=== PATIENT | female | born 1955 | race Caucasian/White ===

== ENCOUNTER 2024-10-23 09:31 | Inpatient (IN) | payer MEDICARE, MEDICAID, SELFPAY ==
[2024-10-23] VITALS (11 sets, daily range): BP systolic 149–192; BP diastolic 55–71; PULSE 71–83; RESP 16–20; TEMP 36.6–37.2; O2SAT 95–98; BMI 29.3; BMI 28.9
--- NOTE | ~2024-10-23 | NM_ITS ---
Lexiscan Myocardial perfusion study Indication: Chest pain Technique: The patient was brought in for a Lexiscan perfusion study on 10/25/2024 and was injected 0.4 mg of Lexiscan intravenously. Within a minute of this injection 25 mCi of sestamibi was given intravenously. Images were obtained using the SPECT gamma camera interlaced with the gating device. Images were obtained in supine position. Resting perfusion study was performed on 10/24/2024. Patient was administered 25 mCi of sestamibi intravenously at rest. Images were then obtained in supine position. Images obtained without without CT attenuation. Total DLP 177 mGy-cm. Images were processed with the software and compared side to side in short axis, horizontal long axis and vertical long axis views. Findings: The stress perfusion study showed nonattenuation images show normal uptake ordered images in all segments of the LV myocardium. There is suggestion of left ventricular hypertrophy. Attenuated corrected images show minimally reduced uptake in the distal septum of the LV myocardium The gated study shows normal LV systolic function with calculated LVEF of 62%. LV cavity is normal in size. The gated study shows normal systolic wall thickening and contraction of segments. Resting study shows nonattenuated images show minimal thinning of the distal lateral wall of the LV myocardium.. Gating at rest reveals normal systolic wall motion with ejection fraction at 56%. The findings are consistent with normal myocardial perfusion. NM/NM delaney perf SPECT rest & str Impression: 1. Myocardial perfusion imaging study shows normal myocardial perfusion 2. Gated LVEF is 62% 3. Transient ischemic dilatation not present Nondiagnostic changes on EKG. Electronically signed by: Eliu Alvarez MD 10/25/2024 02:56 PM EDT
--- NOTE | ~2024-10-23 | XR_ITS ---
EXAMINATION: XR CHEST 1 VIEW HISTORY: CP COMPARISON: There are no prior studies for comparison. FINDINGS: A single AP portable view of the chest performed at 9:59 AM is submitted. The lungs are expanded and clear. There is no pleural effusion, pneumothorax, or pulmonary vascular congestion. The heart is enlarged. The aorta is calcified. The bones are intact. XR/XR chest 1V IMPRESSION: Cardiomegaly. The lungs are clear. Electronically signed by: Narinder Altamirano MD 10/23/2024 10:18 AM EDT
--- NOTE | 2024-10-23 09:41 | ECG_ITS ---
Test Reason : CHEST PAIN Blood Pressure : */* mmHG Vent. Rate : 78 BPM Atrial Rate : 78 BPM P-R Int : 158 ms QRS Dur : 84 ms QT Int : 424 ms P-R-T Axes : 48 33 78 degrees QTcB Int : 483 ms Normal sinus rhythm Cannot rule out Anterior infarct , age undetermined Subtle ST elevations inferior and lateral leads ?pericarditis Abnormal ECG No previous ECGs available Referred By: Generic ED Physician Electronically Signed By: Dung Waters
--- NOTE | 2024-10-23 09:56 | ED_ITS ---
HPI - Chest Pain General Chief Complaint: Chest Pain Stated Complaint: CHEST PRESSURE Time Seen by Provider: 10/23/24 09:55 Source: patient and RN notes reviewed Mode of arrival: ambulatory Limitations: no limitations History of Present Illness ED Provider: Laura Matias PA-C HPI narrative: This is a 69-year-old female, with a history of end-stage renal disease on dialysis [place] [facility] patient (previously M/W/F > recently changed to Wednesday and Fridays several weeks ago - followed by Dr. Mcelroy), hypertension, recent [facility] admission for pericarditis, pericardial effusion, hyperlipidemia, CHF, subarachnoid hemorrhage, hyper parathyroidism here with concerns for acute episode of midsternal chest pain and hypertension during dialysis treatment today. Patient reports that at 8:50 a.m. she was almost done with her dialysis when she developed midsternal chest pressure, describing as if ?someone was sitting on my chest?. At that time she developed nausea, shortness of breath, palpitations. She states that she received nitroglycerin x3 which alleviated her symptoms. She reports that she has some soreness to her chest otherwise she was feeling better. She also was given 4 baby aspirin EN route. She denies any current shortness of breath, abdominal nausea, vomiting or diarrhea. She does report that she had the flu several weeks ago. She does report that she recovered from this, and states that she has been in her usual state of health as of recent. MD complaint: chest pain and chest heaviness Pertinent past history: coronary artery disease Onset (ago): hour(s) Timing of current episode: episodic Prior episodes: No Onset: other (During dialysis) Pain location: substernal Severity: severe Quality: heaviness Relieving factors: nitroglycerin Associated symptoms: nausea and dyspnea Treatment prior to arrival: aspirin and nitroglycerin Risk Factors Coronary artery disease risk factors: hyperlipidemia and hypertension Thoracic aortic dissection risk factors: none Related Data Allergies Allergy/AdvReac Type Severity Reaction Status Date / Time No Known Allergies Allergy Verified 10/23/24 09:48 Review of Systems 2 Review of Systems: Yes all other systems are reviewed and are negative Constitutional: Constitutional: Reports as per HPI [facility] Social History Social History Smoked in Last 30 Days: No Use of substances other than those prescribed or required for medical reasons: No Advance Directives: No Advance Directives Information Provided: Yes Physical Exam 2 Vital Signs: Vital Signs: Last Vital Signs Temp 97.9 F 10/23/24 10:21 Pulse 71 10/23/24 13:12 Resp 16 10/23/24 13:12 BP 175/71 H 10/23/24 13:12 Pulse Ox 98 10/23/24 13:12 O2 Del Method Room Air 10/23/24 13:12 BMI result Body Mass Index 29.3 Const: General: cooperative, comfortable and no acute distress O rientation/consciousness: patient oriented x3 Limitations: no limitations HEENT: Head: Yes normal to inspection, Yes normocephalic and Yes atraumatic Ears: hearing grossly normal bilaterally General nose exam: Normal external nose present Face and sinus: Yes normal facial exam Mouth: Normal oral and palatal mucosa present, oropharynx normal and moist mucous membranes Throat: Yes posterior oropharynx normal Eyes: General: appearance normal, both eyes and all related structures E yelids: Yes eyelids normal Conjunctivae: conjunctivae normal Sclerae: s clerae normal Pupils: Equal, round and reactive pupils present EOM: EOMs intact bilaterally Neck: Neck: Yes normal visual inspection, Yes full ROM and Yes no lymphadenopathy Lymphatic: no lymphadenopathy noted Chest: Chest palpation & inspection: normal inspection of the chest Resp: Effort & Inspection: normal respiratory effort and able to speak in complete sentences Auscultation: clear to auscultation bilaterally, no crackles, no rales, no rhonchi and no wheezes Cardio: Rate: regular rate Rhythm: regular rhythm Heart sounds: S1 normal heart sound present and S2 normal heart sound present GI: Other: Abdomen is soft, nontender Inspection: Yes normal to inspection Skin: General skin exam: no rashes or lesions noted Trauma: no lacerations or abrasions Wounds: no wounds Neuro: General: patient oriented x3 and moves all extremities Cranial nerves: Yes Equal, round and reactive pupils present Extrem: Other: 1+ pitting edema noted bilaterally, no c alan tenderness. General: Yes normal to inspection Right upper extremity: normal to inspection Left upper extremity: normal to inspection Right lower extremity: normal to inspection Left lower extremity: normal to inspection Course Reevaluation(s) Reevaluation #1: Labs returned, patient with leukocytosis at 13.1, H&H 11.4/34.1, chemistry with hypokalemic at 3.1, creatinine 2.1, BUN of 29, glucose 238, 1st troponin as 47.2, BNP 433. Patient has a heart score of 7. Reached out to cardiac care nurse, Dr. Waters pending overall workup. Time: 11:16 Reevaluation #2: Per recommendation from cardiac care nurse, Dr. Waters, recommending dose of nitroglycerin to see if soreness in chest resolves. Time: 11:44 Reevaluation #3: Been feeling much better after receiving dose of nitroglycerin, states that her chest pain has resolved. Repeat EKG does not show any significant acute changes. Will discuss with Dr. Waters Time: 12:45 Additional Reevaluation(s): 1326 - reviewed repeat EKG with Dr. Waters - appears that this is a pericarditis like change. Will add on ESR and CRP. Repeat troponin 50.4. Patient will be admitted for further management and observation. Dr. Waters recommends admission. Will discussed with hospitalist for transfer of care their service. Patient remains to be chest pain free. Medications Administered Discontinued Medications Generic Name Dose Route Start Last Admin Trade Name Freq PRN Reason Stop Dose Admin Nitroglycerin 0.4 mg 10/23/24 11:44 10/23/24 12:19 Nitroglycerin 0.4 Mg Tab.Subl SUBLINGUAL 10/23/24 11:45 0.4 mg ONCE ONE Administration Medical Decision Making Medical Decision Making [facility] Narrative: This is a 69-year-old female, with a history of end-stage renal disease on dialysis [facility] center patient (previously M/W/F > recently changed to Wednesday and Fridays several weeks ago), hypertension, pericarditis, pericardial effusion, hyperlipidemia, CHF, subarachnoid hemorrhage, hyper parathyroidism here with concerns for acute episode of midsternal chest pain and hypertension during dialysis treatment today. On arrival, blood pressure 149/59, all other vital signs within normal limits. She is well-appearing under no acute distress. Patient reports that her chest pain has since resolved after receiving nitro and aspirin. EKG was performed revealing normal sinus rhythm at a ventricular rate of 78 beats per minute, no ST elevation or depression SC interval 158, QT QTC 424/483. Differential diagnoses include NSTEMI, STEMI, ACS, unstable angina, pneumonia. Patient typically goes to [facility] for her treatment, she does present today with medical records printed out from the [facility]. Differential Diagnosis Differential Diagnoses: The differential diagnosis associated with the presentation includes See above Admission/Observation Consideration of admission/observation: Escalation of care including admission/observation considered Lab Data MDM Lab Attestation statement: I reviewed the patient's lab results. 10/23/24 10:11 10/23/24 10:11 Labs: Lab Results 10/23/24 10/23/24 10/23/24 Range/Units 10:11 10:45 12:33 WBC 13.1 H (4.8-10.8) X10*3/uL RBC 3.47 L (4.20-5.50) X10*6/uL Hgb 11.4 L (12.0-16.0) g/dl Hct 34.1 L (37.0-47.0) % MCV 98.3 H (80.0-98.0) fL MCH 32.9 (27.0-33.0) pg MCHC 33.4 (31.0-35.0) g/dl RDW 15.6 (11.0-16.0) % Plt Count 163 (160-400) X10*3/uL MPV 10.0 (9.4-12.3) fL Immature Gran % (Auto) 4.3 H (0.0-0.4) % Neut % (Auto) 83.0 H (45-73) % Lymph % (Auto) 8.2 L (20-40) % Traverse % (Auto) 3.9 (2-11) % Eos % (Auto) 0.4 (0-4) % Baso % (Auto) 0.2 (0-2) % Lymph # (Auto) 1.1 L (1.2-4.9) X10*3/uL [place]verse # (Auto) 0.5 (0.1-1.2) X10*3/uL Eos # (Auto) 0.1 (0.0-0.4) X10*3/uL Baso # (Auto) 0.0 (0.0-0.2) X10*3/uL Abs Immat Gran (auto) 0.56 H (0.00-0.03) X10*3/uL Absolute Neuts (auto) 10.9 H (2.0-8.3) x10*3/uL Absolute Nucleated RBC 0.000 (0.0-0.012) X10*3/uL Nucleated RBC % (auto) 0.0 (0.0-0.2) /100WBC PT 10.2 L (10.9-12.4) SEC INR 0.9 (0.9-1.1) APTT 24.7 L (26.0-36.8) SEC Sodium 140 (135-145) mmol/L Potassium 3.1 L (3.3-5.1) mmol/L Chloride 101 (96-108) mmol/L Carbon Dioxide 28 (22-29) mmol/L Anion Gap 14 (12-20) BUN 29 H (9-16) mg/dL Creatinine 2.13 H (0.5-1.4) mg/dL Estim Creat Clear Calc 22.9 Estimated GFR 23 Random Glucose 238 H (60-115) mg/dL Calcium 8.3 L (8.4-10.2) mg/dL Magnesium 1.6 (1.6-2.6) mg/dL Total Bilirubin 0.3 (0.0-1.0) mg/dL Direct Bilirubin 0.1 (0.0-0.5) mg/dL AST 26 (5-31) U/L ALT 39 H (0-31) U/L Alkaline Phosphatase 37 L (39-117) U/L Troponin I High Sens 47.2 H 50.4 H* (<3.5-17.0) ng/L C-Reactive Protein < 0.10 (< or = 0.50) mg/dL B-Natriuretic Peptide 433 H (<100) pg/mL Total Protein 6.2 L (6.5-8.0) g/dL Albumin 3.4 L (3.5-5.0) g/dL Influenza Type A (PCR) NEGATIVE (Negative) Influenza Type B (PCR) NEGATIVE (Negative) RSV RNA Qual (PCR) NEGATIVE (Negative) SARS-CoV-2 RNA (RT-PCR) NEGATIVE (Negative) Radiology Impression Discussion of test interpretation with radiology: I have reviewed the radiologist's reading. Radiologist Impression: EXAMINATION: XR CHEST 1 VIEW HISTORY: CP COMPARISON: There are no prior studies for comparison. FINDINGS: A single AP portable view of the chest performed at 9:59 AM is submitted. The lungs are expanded and clear. There is no pleural effusion, pneumothorax, or pulmonary vascular congestion. The heart is enlarged. The aorta is calcified. The bones are intact. XR/XR chest 1V IMPRESSION: Cardiomegaly. The lungs are clear. Electronically signed by: Narinder Altamirano MD 10/23/2024 10:18 AM EDT RP Dictated By: Narinder Altamirano MD Signed By: <Electronically signed by Narinder Altamirano MD in OV> Scores Heart Score History: -2- highly suspicious ECG: -0- normal Age: -2- > or = 65 Risk factory: -2- 3 or more risk factors or treated atherosclerosis Troponin: -1- >1 - <3x normal limit Score: 7 Risk: 50.1% Discharge Plan Discharge Clinical Impression: Chest pain, Pericarditis Patient Disposition: Still a Patient Print Language: Yoruba
[2024-10-23 10:19] LABS: MANUAL DIFF FLAG NO
[2024-10-23 10:21] LABS: Basophils Percent Auto 0.2 % (0-2); Eosinophils Absolute Auto 0.1 X10*3/uL (0.0-0.4); Eosinophils Percent Auto 0.4 % (0-4); Hematocrit 34.1 % (37.0-47.0); Hemoglobin 11.4 g/dl (12.0-16.0); Imm Gran Abs Auto 0.56 X10*3/uL (0.00-0.03); Imm Gran Pct Auto 4.3 % (0.0-0.4); Lymphocytes Absolute Auto 1.1 X10*3/uL (1.2-4.9); Lymphocytes Percent Auto 8.2 % (20-40); Mean Corpuscular HGB Conc 33.4 g/dl (31.0-35.0); Mean Corpuscular Hemoglobin 32.9 pg (27.0-33.0); Mean Corpuscular Volume 98.3 fL (80.0-98.0); Monocytes Absolute Auto 0.5 X10*3/uL (0.1-1.2); Monocytes Percent Auto 3.9 % (2-11); Neutrophils Absolute Auto 10.9 x10*3/uL (2.0-8.3); Platelet Count 163 X10*3/uL (160-400); Red Blood Count 3.47 X10*6/uL (4.20-5.50); Red Cell Distribution Width 15.6 % (11.0-16.0); White Blood Count 13.1 X10*3/uL (4.8-10.8)
[2024-10-23 10:30] LABS: INTERNATIONAL NORM RATIO 0.9 (0.9-1.1); Prothrombin Time 10.2 SEC (10.9-12.4)
[2024-10-23 10:33] LABS: Partial Thromboplastin Time 24.7 SEC (26.0-36.8)
[2024-10-23 10:52] LABS: Alanine Aminotransferase 39 U/L (0-31); Albumin Level 3.4 g/dL (3.5-5.0); Alkaline Phosphatase 37 U/L (39-117); Anion Gap 14 (12-20); Aspartate Amino Transferase 26 U/L (5-31); Bilirubin Direct 0.1 mg/dL (0.0-0.5); Bilirubin Total 0.3 mg/dL (0.0-1.0); Blood Urea Nitrogen 29 mg/dL (9-16); Calcium 8.3 mg/dL (8.4-10.2); Carbon Dioxide 28 mmol/L (22-29); Chloride 101 mmol/L (96-108); Creatinine Clr Calc Pharmacy 22.9; Estimated Glomerular Filt Rate 23; Glucose Random 238 mg/dL (60-115); Magnesium 1.6 mg/dL (1.6-2.6); Potassium 3.1 mmol/L (3.3-5.1); Sodium 140 mmol/L (135-145); Total Protein 6.2 g/dL (6.5-8.0)
[2024-10-23 10:54] LABS: Troponin-I High Sensitivity 47.2 ng/L (<3.5-17.0)
[2024-10-23 10:58] LABS: Influenza A PCR NEGATIVE (Negative); Influenza B PCR NEGATIVE (Negative); Resp Syncy Virus RNA Qual PCR NEGATIVE (Negative); SARS COV2 PCR INHOUSE NEGATIVE (Negative)
[2024-10-23 11:12] LABS: B Type Natriuretic Peptide 433 pg/mL (<100)
--- NOTE | 2024-10-23 11:41 | ECG_ITS ---
Test Reason : CHEST PAIN Blood Pressure : */* mmHG Vent. Rate : 77 BPM Atrial Rate : 77 BPM P-R Int : 170 ms QRS Dur : 82 ms QT Int : 442 ms P-R-T Axes : 54 40 86 degrees QTcB Int : 500 ms Normal sinus rhythm Cannot rule out Anterior infarct (cited on or before 23-Oct-2024) ST elevations-consider pericarditis/ Abnormal ECG When compared with ECG of 23-Oct-2024 09:47, No significant change was found Referred By: Laura Matias Electronically Signed By: Dung Waters
[2024-10-23] MEDS: Nitroglycerin 0.4 MG TAB.SUBL SUBLINGUAL (12:19)
[2024-10-23 13:20] LABS: Troponin-I High Sensitivity 50.4 ng/L (<3.5-17.0)
[2024-10-23 13:27] LABS: C Reactive Protein < 0.10 mg/dL (< or = 0.50)
--- NOTE | 2024-10-23 13:59 | PC.NURSE ---
Pt presents to ED via EMS from [facility] for hypertension and an episode of midline CP 05/18 that resolved after nitro X3 by facility. Pt gets dialysis Wed/Wed/Wed, has been compliant, fistula on left side. Pt is alert and oriented with mild confusion, breathing even and unlabored, skin warm and dry. IV 18G in right AC by EMS. Pt denying any complaints, does have episode of mild CP here again resolved by nitro
--- NOTE | 2024-10-23 14:00 | PC.NURSE ---
Purewick placed for urine incontinence, pt cleaned.
[2024-10-23 14:09] LABS: Erythrocyte Sedimentation Rate 17 MM/HR (0-20)
--- NOTE | 2024-10-23 14:37 | PM.CNCAR ---
History of Present Illness History of Present Illness Date of Service: 10/23/24 Requesting physician: Laura Matias Chief complaint: CHEST PRESSURE Narrative: [age] year female who is presenting for chest pain. She has reported history as per the daughter and herself of pericarditis which she has been treated for a few times at [facility] recently. She said she was given initially aspirin and had recurrent episode and again was given aspirin. Subsequently she was given prednisone because of recurrent pericarditis. Colchicine was not given because she is on hemodialysis. Today while on dialysis she had sudden onset chest pressure. She said it felt as if someone is sitting on my chest. Her blood pressure was significantly elevated at that time with systolics in 200s. She was given 3 nitroglycerin with improvement in chest pain. Her troponins are negative. ECG is showing diffuse ST elevations consistent with pericarditis. Although her symptoms are somewhat atypical for pericarditis. She said she previously had never had pressure-like feeling like she felt today. She has risk for coronary disease with previous stroke involving the right side as well as bilateral carotid stenosis. [facility] Social History Social History Smoked in Last 30 Days: No Use of substances other than those prescribed or required for medical reasons: No Advance Directives: No Advance Directives Information Provided: Yes Meds Allergies Allergy/AdvReac Type Severity Reaction Status Date / Time No Known Allergies Allergy Verified 10/23/24 09:48 Physical Exam Vital Signs: Vital Signs: Last Vital Signs Temp 97.9 F 10/23/24 10:21 Pulse 71 10/23/24 13:12 Resp 16 10/23/24 13:12 BP 175/71 H 10/23/24 13:12 Pulse Ox 98 10/23/24 13:12 O2 Del Method Room Air 10/23/24 13:12 BMI result Body Mass Index 29.3 GENERAL APPEARANCE: in no acute distress, pleasant. NECK: no jugular venous distention. SKIN: no suspicious lesions, warm and dry. HEART: Ejection systolic murmur aortic area, regular rate and rhythm. Left AV fistula bruit heard over the left chest wall. LUNGS: clear to auscultation bilaterally. ABDOMEN: soft, nontender. EXTREMITIES: Mild edema at the ankles.. PERIPHERAL PULSES: equal. NEUROLOGIC: No gross deficits, AAO X 3 Objective Labs and Meds 10/23/24 10:11 10/23/24 10:11 Lab results: Laboratory Results - last 24 hr 10/23/24 10/23/24 10/23/24 10:11 10:45 12:33 WBC 13.1 H RBC 3.47 L Hgb 11.4 L Hct 34.1 L MCV 98.3 H MCH 32.9 MCHC 33.4 RDW 15.6 Plt Count 163 MPV 10.0 Immature Gran % (Auto) 4.3 H Neut % (Auto) 83.0 H Lymph % (Auto) 8.2 L Hood % (Auto) 3.9 Eos % (Auto) 0.4 Baso % (Auto) 0.2 Lymph # (Auto) 1.1 L Hood # (Auto) 0.5 Eos # (Auto) 0.1 Baso # (Auto) 0.0 Abs Immat Gran (auto) 0.56 H Absolute Neuts (auto) 10.9 H Absolute Nucleated RBC 0.000 Nucleated RBC % (auto) 0.0 ESR 17 PT 10.2 L INR 0.9 APTT 24.7 L Sodium 140 Potassium 3.1 L Chloride 101 Carbon Dioxide 28 Anion Gap 14 BUN 29 H Creatinine 2.13 H Estim Creat Clear Calc 22.9 Estimated GFR 23 Random Glucose 238 H Calcium 8.3 L Magnesium 1.6 Total Bilirubin 0.3 Direct Bilirubin 0.1 AST 26 ALT 39 H Alkaline Phosphatase 37 L Troponin I High Sens 47.2 H 50.4 H* C-Reactive Protein < 0.10 B-Natriuretic Peptide 433 H Total Protein 6.2 L Albumin 3.4 L Influenza Type A (PCR) NEGATIVE Influenza Type B (PCR) NEGATIVE RSV RNA Qual (PCR) NEGATIVE SARS-CoV-2 RNA (RT-PCR) NEGATIVE Imaging Radiologist's impression: Impressions Chest X-Ray 10/23/24 09:49 IMPRESSION: Cardiomegaly. The lungs are clear. Electronically signed by: Narinder Altamirano MD 10/23/2024 10:18 AM EDT Assessment and Plan (1) Chest pain: Status: Acute (2) Essential hypertension: Status: Acute Plan Pleasant 69 year female on hemodialysis who has been treated for pericarditis a few times over the last month or so. She has recurrent pericarditis at this point and is on prednisone. Steroids unfortunately increase the risk for recurrent pericarditis. Her ECG has changes more consistent with pericarditis but her clinical story does not fit into pericarditis currently. She had sudden onset pressure-like feeling which improved with nitroglycerin and her blood pressure was elevated. It is possible that symptoms were due to elevated blood pressure. Her blood pressure currently is elevated. Please do a med rec so we can start her home medications. Resume all medications. She has a clonidine patch but she is very positive that she change it yesterday with a date written on it. I have explained to her that clonidine withdrawal can cause significant elevation of blood pressure and can lead to symptoms. We will do echocardiography to assess for any pericardial effusion. As blood pressure improves, we will discuss whether we do any ischemic evaluation or not. I have explained my plan to the patient and daughter in detail. Thank you for allowing me to participate in the care of your patient. Please feel free to contact me if you have any questions. Procedures Date of Service Date of Service: 10/23/24
--- NOTE | 2024-10-23 14:51 | P.HPHOSP_ITS ---
History of Present Illness Date of Service: 10/23/24 Attending physician on admission: Chauncey Will Chief Complaint: chest pain 69-year-old female with history of ESRD on HD M/F (dialyzed this morning), endometriosis, hypertension, hyperlipidemia, GERD, gout, mood disorder, osteoporosis, and secondary hyperparathyroidism presented to the ED earlier today during dialysis session due to retrosternal chest pain that lasted about 10-15 minutes. Daughter is at bedside who assists with history as patient is reported to have short-term memory issues. The pain was nonradiating and was described as pressure. There was associated dyspnea. She was given nitro x3 and symptoms resolved followeding the 3rd nitro tab. She states her blood pressure had gone low during dialysis and then robounded and was quite elevated (she does not recall the bp's) and that was when the pain set in. She does not recall if there was any improvement or exacerbation with position changes, she states she feels like she could not move. She denies any fevers, chills, abdominal pain, nausea, vomiting, diarrhea, urinary symptoms, cough, palpitations, lightheadedness. There has been no recurrence of the dyspnea and chest pain. She has a history of pericarditis, initially diagnosed in 06/28/2024. She was recently admitted again to [facility] with chest pain and was ultimately diagnosed with acute pericarditis and was discharged on 09/19. Inflammatory markers were initially negative but were trended and did elevate. She was discharged on high dose aspirin taper which she has completed as well as a prednisone taper. She currently has 1 week left of 10 mg daily and then will complete 2 weeks of 5 mg daily. ESR at [facility] at its highest was 26, CRP within normal limits. She did not undergo echocardiogram during that admission. She states the pain during this admission was different than that which was experience this morning. She states she had a constant chest pressure that worsened when lying down flat. Since arrival to the hospital, patient has been quite hypertensive, on exam blood pressure 186/130. Vitals otherwise stable. She has a leukocytosis of 13.1 and anemia with H/H 11.4/34.1%, MCV only mildly elevated at 98.3. Creatinine baseline, electrolyte levels normal except for potassium of 3.1. Glucose 238. AST 26, ALT 39. Initial troponin 47.2, repeat 50.4, consistent with baseline. BNP 433. ESR and CRP within normal limits. Negative for COVID- 19, RSV, influenza. Chest x-ray shows cardiomegaly but otherwise unremarkable. EKG shows NSR, rate [address] elevations in the inferior and lateral leads. Review of Systems 2 Review of Systems: Yes all other systems are reviewed and are negative [facility] Social History Smoked in Last 30 Days: No Use of substances other than those prescribed or required for medical reasons: No Advance Directives: No Advance Directives Information Provided: Yes Meds Allergies Allergy/AdvReac Type Severity Reaction Status Date / Time No Known Allergies Allergy Verified 10/23/24 09:48 Home Medications ?Medication ?Instructions ?Recorded ?Confirmed ?Last Taken ?Type albuterol sulfate 90 mcg/actuation 1 puff inhalation Q4H PRN wheezing 10/23/24 Unknown History aerosol inhaler allopurinol 100 mg tablet 100 mg PO DAILY 10/23/24 Unknown History amlodipine 5 mg tablet 5 mg PO DAILY 10/23/24 Unknown History atorvastatin 80 mg tablet 80 mg PO DAILY 10/23/24 Unknown History benzonatate 200 mg capsule 200 mg PO TID 10/23/24 Unknown History carvedilol 25 mg tablet 25 mg PO BID 10/23/24 Unknown History cholecalciferol (vitamin D3) 50 50 mcg PO DAILY 10/23/24 Unknown History mcg (2,000 unit) tablet (Vitamin D3) clonidine 0.2 mg/24 hr weekly 1 patch topical QWEEK 10/23/24 Unknown History transdermal patch ezetimibe 10 mg tablet 10 mg PO DAILY 10/23/24 Unknown History fluoxetine 40 mg capsule 40 mg PO DAILY 10/23/24 Unknown History mirabegron 25 mg tablet,extended 25 mg PO DAILY 10/23/24 Unknown History release 24 hr (Myrbetriq) mirtazapine 30 mg tablet 30 mg PO BEDTIME 10/23/24 Unknown History pantoprazole 20 mg tablet,delayed 20 mg PO DAILY 10/23/24 Unknown History release prednisone 10 mg tablet See Taper PO DAILY 10/23/24 Unknown History torsemide 100 mg tablet 100 mg PO SUTUWETHSA 10/23/24 Unknown History Physical Exam 2 Vital Signs and Narrative: Vital Signs: Last Vital Signs Temp 97.9 F 10/23/24 10:21 Pulse 71 10/23/24 13:12 Resp 16 10/23/24 13:12 BP 175/71 H 10/23/24 13:12 Pulse Ox 98 10/23/24 13:12 O2 Del Method Room Air 10/23/24 13:12 BMI result Body Mass Index 29.3 Constitutional - Awake and Alert, No apparent distress Eyes - PERRLA, EOMI Cardiovascular - S1S2, RRR, No edema Respiratory - Normal lung expansion, Normal respiratory effort, No respiratory distress, CTA bilaterally Gastrointestinal - NT / ND; +BS; No rebound or guarding Extremities - no calf tenderness bilaterally, no swelling Skin - Warm/Dry Neurological - Alert & oriented x3 Psychological - Appropriate affect Results Labs 10/23/24 10:11 10/23/24 10:11 Labs: Laboratory Results - last 24 hr 10/23/24 10/23/24 10:11 10:45 MCV 98.3 H MCH 32.9 MCHC 33.4 RDW 15.6 Plt Count 163 MPV 10.0 Immature Gran % (Auto) 4.3 H Neut % (Auto) 83.0 H Lymph % (Auto) 8.2 L [place] % (Auto) 3.9 Eos % (Auto) 0.4 Baso % (Auto) 0.2 Lymph # (Auto) 1.1 L [place] # (Auto) 0.5 Eos # (Auto) 0.1 Baso # (Auto) 0.0 Abs Immat Gran (auto) 0.56 H Absolute Neuts (auto) 10.9 H Absolute Nucleated RBC 0.000 Nucleated RBC % (auto) 0.0 ESR 17 PT 10.2 L INR 0.9 APTT 24.7 L Anion Gap 14 Estim Creat Clear Calc 22.9 Estimated GFR 23 Random Glucose 238 H Calcium 8.3 L Magnesium 1.6 Total Bilirubin 0.3 Direct Bilirubin 0.1 AST 26 ALT 39 H Alkaline Phosphatase 37 L C-Reactive Protein < 0.10 B-Natriuretic Peptide 433 H Total Protein 6.2 L Albumin 3.4 L Influenza Type A (PCR) NEGATIVE Influenza Type B (PCR) NEGATIVE RSV RNA Qual (PCR) NEGATIVE SARS-CoV-2 RNA (RT-PCR) NEGATIVE Imaging Radiologist's Impressions: Impressions Chest X-Ray 10/23/24 09:49 IMPRESSION: Cardiomegaly. The lungs are clear. Electronically signed by: Narinder Altamirano MD 10/23/2024 10:18 AM EDT RP Assessment and Plan (1) Chest pain: Status: Acute (2) Pericarditis: Status: Acute (3) Essential hypertension: Status: Acute Plan 69-year-old female with history of ESRD on HD M/F (dialyzed this morning), endometriosis, hypertension, hyperlipidemia, GERD, gout, mood disorder, osteoporosis, and secondary hyperparathyroidism to be observed for further management of chest pain #Acute chest pain -recent admission to [facility] for pericarditis currently on prednisone taper -ESR and CRP w/i normal limits. EKG with subtle ST elevations in inferior and lateral leads -troponins elevated, but chronically so and consistent with baseline -continue prednisone taper as ordered -cardiology consult -monitor on telemetry -improved with nitroglycerin x3 and was given 325 mg aspirin -echocardiogram # elevated troponins -chronically elevated in the setting of ESRD. Initial troponin 47, repeat 50. Consistent with baseline # acute leukocytosis -likely inflammatory. There is no evidence of infection # anemia of chronic disease -H/H stable # ESRD on HD M/F -nephrology consult, continue HD as scheduled # hypertension -uncontrolled, has not taken antihypertensives this morning -give 1 time dose 10 mg IV hydralazine -resume Coreg, amlodipine. Currently wearing clonidine patch # hyperlipidemia -continue statin # chronic gout -continue allopurinol # mood disorder -continue fluoxetine, mirtazapine # GERD -PPI DVT prophylaxis-heparin Full code Quality Stroke Does the patient have a stroke diagnosis?: No VTE Prior VTE?: No VTE Risk Level:: Medical - moderate - high VTE Device Contraindication: Treatment Not Indicated VTE Drug Contraindication: N/A - Med Ordered
[2024-10-23] MEDS: predniSONE 10 MG TABLET PO (16:25)
[2024-10-23] MEDS: amLODIPine Besylate 5 MG TABLET PO (16:25)
[2024-10-23] MEDS: hydrALAZINE HCl 20 MG/ML VIAL 10 MG IVPUSH (16:26)
--- NOTE | 2024-10-23 16:34 | PHA.MEDREC ---
Addendum entered by Robert Thomas RPh 10/23/24 17:36: Reviewed by [facility]. Pt takes Protonix 40mg daily Original Note: Pharmacy Consult ? Medication Reconciliation Pharmacy has completed the medication reconciliation. Spoke to patient to confirm med list, however she was a little confused and instructed me to call her daughter Ml. Spoke to Daughter Ml over the phone and she was able to confirm all of patients medications. Daughter states Clonidine is every Wednesday, new patch was put on , Prednisone 10 mg taper dose ( 3 tabs daily x14 days, 2 tabs x14 days, 1 tab daily x14 days, 1/2 tab daily x14 days) patient is week 4 of taper ( 1 tab daily x7 more days then 1/2 t daily. Patient is now on Aspirin 81 mg daily.
[2024-10-23 16:38] LABS: Estimated Average Glucose 117 mg/dL; Hemoglobin A1C 114.5744 umol/L; Hemoglobin A1c % 5.7 % (<6.0); Total Hemoglobin (HGBA1C) 2993.7341 umol/L
--- NOTE | 2024-10-23 17:00 | CA_ITS ---
Transthoracic Echocardiogram Patient (Last, First, Middle): Karla Acevedo, Gender: Female Date of : 1955 Age: 69 Procedure Date: 10/23/2024 Procedure Type: Transthoracic Echocardiogram Location: ER Height: 157.48 cm Weight: 72.58 kg BSA: 1.74 m2 Heart Rate: 76 bpm BP: 183 / 130 mmHg Nicker: Referring MD: Dung Waters MD Symptoms: h/o pericarditis. chest pain Study Quality: Adequate ECG Rhythm: Sinus Conclusions: - Normal left ventricular size and systolic function. There is moderately increased left ventricular wall thickness. The visually estimated ejection fraction is between 65-70%. - Elevated filling pressures. - There is mild aortic valve stenosis. - There is a moderate pericardial effusion. Findings Left Ventricle Normal left ventricular size and systolic function. There is moderately increased left ventricular wall thickness. The visually estimated ejection fraction is between 65-70%. There is no evidence of regional wall motion abnormalities. Abnormal diastolic function is noted. Spectral Doppler is indicative of an impaired relaxation filling pattern. Elevated filling pressures. Right Ventricle Normal right ventricular cavity size and systolic function. Atria The left atrium is likely dilated. Aortic Valve Normal aortic valve structure and function. There is mild aortic valve stenosis. The peak aortic velocity is 2.21 m/s. The mean gradient is 10 mmHg. There is no aortic valve regurgitation. Mitral Valve The mitral valve appears normal. There is no mitral valve regurgitation. There is no mitral valve stenosis. Pulmonic Valve The pulmonic valve is likely normal. Tricuspid Valve Normal tricuspid valve structure. There is trace tricuspid valve regurgitation. Normal right atrial pressure. There is no evidence of pulmonary hypertension. Great Vessels All visible segments of the aorta are normal in size. Venous The inferior vena cava is normal in size and collapses greater than 50% with inspiration. Pericardium/Pleural There is a moderate pericardial effusion. There are no definitive echocardiographic findings of tamponade physiology. Prior Study Comparison No prior study available for comparison. Measurements 2D Linear Measurements IVSd: 1.41 0.6-0.9/0.6-1.0 cm LVIDd: 3.74 3.9-5.3/4.2-5.9 cm LVIDd Index: 2.15 2.4-3.2/2.2-3.1 cm/m2 LVIDs: 2.52 2.0-3.6 cm LVPWd: 1.27 0.7-1.1 cm LA Diam: 2.90 2.7-3.8/3.0-4.0 cm LAIDs Index: 1.67 1.5-2.3 cm/m2 LV Mass: 220.79 67-162/88-224 g LV Mass Index: 126.89 43-95/49-115 g/m2 LVOT Diam: 2.00 3.0+(-)1.3 cm Mitral Valve MV Pk E: 1.04 MV PK A: 1.20 MV Decel Time: 231.00 E/A: 0.90 E'Lateral: 5.22 E'Medial: 3.59 E/E' Med: 29.00 E/E' Lat: 19.90 PHT: 68.00 MVA PHT: 3.24 Decel [place]: 4.49 Aortic Valve AoV Pk Trell: 2.21 AoV Mn Trell: 1.44 AoV VTI: 0.48 AoV Pk Grad: 20.00 Aov Mn Grad: 10.00 HARDEEP Cont.VTI: 2.27 LVOT LVOT Pk Trell: 1.35 LVOT Mn Trell: 1.04 LVOT VTI: 0.35 LVOT Pk Grad: 7.00 LVOT Mn Grad: 5.00 LVOT Diam: 2.00 LVOT Area: 3.14 Diastolic Function MV Pk E: 1.04 MV Pk A: 1.20 E/A: 0.90 E'Medial: 3.59 E/E' Med: 29.00 E' Laterial: 5.22 E/E' Lat: 19.90 Right Ventricle TAPSE (mm): 27.20 TVS' Trell: 12.70 Tricuspid Valve TR Pk Trell: 1.64 TR Pk Grad: 11.00 RA Press: 3.00 RVSP: 14.00 Great Vessels Aorta Sinus of Valsalva: 2.90 2.0-3.5 cm Ao Asc: 3.10 2.1-3.4 cm Pulmonary Valve PV Pk Trell: 1.50 Peak PV Grad: 9.00 Updated in Other Vendor System with Status of Final Dung Waters MD electronically signed on 10/23/2024 11:28:30 PM with status of Final
[2024-10-23] MEDS: carvediloL 25 MG TABLET PO (20:46)
[2024-10-23] MEDS: Acetaminophen 325 MG TABLET 650 MG PO (20:47)
[2024-10-24] VITALS (10 sets, daily range): BP systolic 130–198; BP diastolic 53–75; PULSE 68–86; RESP 16–20; TEMP 36.2–37.3; O2SAT 95–97
--- NOTE | 2024-10-24 | CA_ITS ---
Acquisition Time: 2024-10-25 09:18:29 Total Exercise Time: 00:02:00 Test Indications: CHEST PAIN Medications: Protocol: LEXISCAN Max HR: 85 BPM 56% of Pred: 150 BPM Max BP: 158/56 mmHG Max Work Load: 1.0 METS Pharmacological stress test with Lexiscan while pt kicks her legs in the chair, with reports of SOB and dizziness, without any arrythmias, with normotensive response to injection. Nondiagnostic EKG for ischemia. In recovery, pt treated with IVP Aminophylline 75 mg to reverse Lexiscan after which pt's breathing returned to baseline and dizziness resolved. Nuclear images pending. Test reviewed with Dr. Waters. Referred By: Dung Waters Electronically Signed By: Deonte Linares
[2024-10-24] MEDS: Heparin Sodium,Porcine 5,000 UNIT/ML VIAL 5000 UNIT SUBCUT ×2 (05:11→15:47)
[2024-10-24 07:04] LABS: MANUAL DIFF FLAG NO
[2024-10-24 07:09] LABS: Basophils Percent Auto 0.2 % (0-2); Eosinophils Absolute Auto 0.1 X10*3/uL (0.0-0.4); Eosinophils Percent Auto 0.6 % (0-4); Hematocrit 35.1 % (37.0-47.0); Hemoglobin 11.5 g/dl (12.0-16.0); Imm Gran Abs Auto 0.39 X10*3/uL (0.00-0.03); Imm Gran Pct Auto 3.2 % (0.0-0.4); Lymphocytes Absolute Auto 1.4 X10*3/uL (1.2-4.9); Lymphocytes Percent Auto 11.7 % (20-40); Mean Corpuscular HGB Conc 32.8 g/dl (31.0-35.0); Mean Corpuscular Hemoglobin 32.3 pg (27.0-33.0); Mean Corpuscular Volume 98.6 fL (80.0-98.0); Mean Platelet Volume 10.3 fL (9.4-12.3); Monocytes Absolute Auto 0.9 X10*3/uL (0.1-1.2); Neutrophils Absolute Auto 9.3 x10*3/uL (2.0-8.3); Neutrophils Percent Auto 77.3 % (45-73); Platelet Count 155 X10*3/uL (160-400); Red Blood Count 3.56 X10*6/uL (4.20-5.50); Red Cell Distribution Width 15.8 % (11.0-16.0); White Blood Count 12.1 X10*3/uL (4.8-10.8)
[2024-10-24 07:21] LABS: Anion Gap 16 (12-20); Blood Urea Nitrogen 50 mg/dL (9-16); Calcium 8.6 mg/dL (8.4-10.2); Carbon Dioxide 30 mmol/L (22-29); Chloride 102 mmol/L (96-108); Creatinine Clr Calc Pharmacy 14.3; Estimated Glomerular Filt Rate 13; Glucose Random 116 mg/dL (60-115); Potassium 3.6 mmol/L (3.3-5.1); Sodium 144 mmol/L (135-145)
[2024-10-24] MEDS: amLODIPine Besylate 5 MG TABLET PO (07:57)
[2024-10-24] MEDS: FLUoxetine HCl 20 MG CAPSULE 40 MG PO (07:57)
[2024-10-24] MEDS: carvediloL 25 MG TABLET PO ×2 (07:57→21:12)
[2024-10-24] MEDS: Mirabegron 25 MG TAB.ER.24H PO (07:57)
[2024-10-24] MEDS: Multivitamin TABLET 1 TAB PO (07:58)
[2024-10-24] MEDS: allopurinoL 100 MG TABLET PO (07:58)
[2024-10-24] MEDS: Atorvastatin Calcium 80 MG TABLET PO (07:58)
[2024-10-24] MEDS: Ezetimibe 10 MG TABLET PO (07:58)
[2024-10-24] MEDS: Cholecalciferol (Vitamin D3) 25 MCG TABLET 50 MCG PO (07:58)
[2024-10-24] MEDS: 0.9 % Sodium Chloride Flush 3 ML SYRINGE IVFLUSH ×4 (07:58→21:12)
[2024-10-24] MEDS: Aspirin Enteric Coated 81 MG TABLET.DR PO (07:58)
[2024-10-24] MEDS: Acetaminophen 325 MG TABLET 650 MG PO (08:03)
--- NOTE | 2024-10-24 08:50 | HO.PM.IMPN ---
Subjective Subjective Date of Service: 10/24/24 Interval History: chest pain resolved Physical Exam Vital Signs: Vital Signs: Last Vital Signs Temp 98.5 F 10/24/24 08:00 Pulse 68 10/24/24 08:00 Resp 20 10/24/24 08:00 BP 198/60 H 10/24/24 08:00 Pulse Ox 97 10/24/24 08:00 O2 Del Method Room Air 10/24/24 08:00 BMI result Body Mass Index 28.9 General: AO X 3, no acute distress Resp: CTA bilateral, no accessory muscles used CVS: S1,S2,RRR GI: soft, non tender, non distended Neuro: motor grossly intact, alert Psych: appropriate affect, appropriate insight Objective Data Active Medications Acetaminophen (Acetaminophen 325 Mg Tablet) 650 mg PO Q6H PRN PRN Reason: Pain, Mild 1-3,fever,headache Last Admin: 10/24/24 08:03 Dose: 650 mg Documented By: HAILY Allopurinol (Allopurinol 100 Mg Tablet) 100 mg PO DAILY [facility] Last Admin: 10/24/24 07:58 Dose: 100 mg Documented By: HAILY Amlodipine Besylate (Amlodipine Besylate 5 Mg Tablet) 5 mg PO DAILY [facility]; Protocol Last Admin: 10/24/24 07:57 Dose: 5 mg Documented By: HAILY Aspirin (Aspirin Enteric Coated 81 Mg Tablet.Dr) 81 mg PO DAILY [facility] Last Admin: 10/24/24 07:58 Dose: 81 mg Documented By: HAILY Atorvastatin Calcium (Atorvastatin Calcium 80 Mg Tablet) 80 mg PO DAILY [facility] Last Admin: 10/24/24 07:58 Dose: 80 mg Documented By: HAILY Calcium Carbonate (Calcium Carbonate 750 Mg Tab.Chew) 750 mg PO Q4H PRN PRN Reason: Heartburn Carvedilol (Carvedilol 25 Mg Tablet) 25 mg PO BID [facility]; Protocol Last Admin: 10/24/24 07:57 Dose: 25 mg Documented By: HAILY Clonidine (Clonidine 0.2 Mg Patch.Tdwk) 0.2 mg TRANSDERMA BELLA [facility]; Protocol Ezetimibe (Ezetimibe 10 Mg Tablet) 10 mg PO DAILY [facility] Last Admin: 10/24/24 07:58 Dose: 10 mg Documented By: HAILY Fluoxetine HCl (Fluoxetine Hcl 20 Mg Capsule) 40 mg PO DAILY [facility] Last Admin: 10/24/24 07:57 Dose: 40 mg Documented By: HAILY Heparin Sodium (Porcine) (Heparin Sodium,Porcine 5,000 Unit/Ml Vial) 5,000 unit SUBCUT Q12H [facility] Last Admin: 10/24/24 05:11 Dose: 5,000 unit Documented By: LUMA Magnesium Hydroxide (Milk Of Magnesia 30 Ml Oral.Susp) 30 ml PO DAILY PRN PRN Reason: Constipation Melatonin (Melatonin 3 Mg Tablet) 6 mg PO BEDTIME PRN PRN Reason: Insomnia Mirabegron (Mirabegron 25 Mg Tab.Er.24h) 25 mg PO DAILY [facility] Last Admin: 10/24/24 07:57 Dose: 25 mg Documented By: HAILY Mirtazapine (Mirtazapine 30 Mg Tablet) 30 mg PO BEDTIME [facility] Multivitamins/Vitamin C (Multivitamin Tablet) 1 tab PO DAILY [facility] Last Admin: 10/24/24 07:58 Dose: 1 tab Documented By: HAILY Omeprazole (Omeprazole 20 Mg Capsule.Dr) 20 mg PO DAILY@0630 [facility] Sodium Chloride (0.9 % Sodium Chloride Flush 3 Ml Syringe) 3 ml IVFLUSH QSHIFT [facility] Last Admin: 10/24/24 07:58 Dose: 3 ml Documented By: HAILY Vitamin D (Cholecalciferol (Vitamin D3) 25 Mcg Tablet) 50 mcg PO DAILY [facility] Last Admin: 10/24/24 07:58 Dose: 50 mcg Documented By: HAILY Labs 10/24/24 06:45 10/24/24 06:45 Labs: Laboratory Results - last 24 hr 10/23/24 10/23/24 10/24/24 10:11 10:45 06:45 MCV 98.3 H 98.6 H MCH 32.9 32.3 MCHC 33.4 32.8 RDW 15.6 15.8 Plt Count 163 155 L MPV 10.0 10.3 Immature Gran % (Auto) 4.3 H 3.2 H Neut % (Auto) 83.0 H 77.3 H Lymph % (Auto) 8.2 L 11.7 L [place] % (Auto) 3.9 7.0 Eos % (Auto) 0.4 0.6 Baso % (Auto) 0.2 0.2 Lymph # (Auto) 1.1 L 1.4 [place] # (Auto) 0.5 0.9 Eos # (Auto) 0.1 0.1 Baso # (Auto) 0.0 0.0 Abs Immat Gran (auto) 0.56 H 0.39 H Absolute Neuts (auto) 10.9 H 9.3 H Absolute Nucleated RBC 0.000 0.000 Nucleated RBC % (auto) 0.0 0.0 ESR 17 PT 10.2 L INR 0.9 APTT 24.7 L Anion Gap 14 16 Estim Creat Clear Calc 22.9 14.3 Estimated GFR 23 13 Random Glucose 238 H 116 H Estimat Average Glucose 117 Hemoglobin A1c % 5.7 Calcium 8.3 L 8.6 Magnesium 1.6 Total Bilirubin 0.3 Direct Bilirubin 0.1 AST 26 ALT 39 H Alkaline Phosphatase 37 L C-Reactive Protein < 0.10 B-Natriuretic Peptide 433 H Total Protein 6.2 L Albumin 3.4 L Influenza Type A (PCR) NEGATIVE Influenza Type B (PCR) NEGATIVE RSV RNA Qual (PCR) NEGATIVE SARS-CoV-2 RNA (RT-PCR) NEGATIVE Assessment and Plan (1) Pericarditis: Status: Acute Plan 69F PMH end-stage renal disease on hemodialysis, endometriosis, hypertension, hyperlipidemia, gout, GERD, mood disorder, osteoporosis, secondary hyperparathyroidism, recurrent pericarditis presented with chest pain Chest pain Resolved, troponin flat, not consistent with pericarditis pain Echo with moderately increased left ventricular wall thickness, EF 65-70%, mild , moderate pericardial effusion Follow-up cardiology Continue aspirin statin, ?need for further ischemic workup Recurrent pericarditis with moderate pericardial effusion Continue prednisone taper, follow up Cardiology End-stage renal disease On hemodialysis Hypertensive urgency Continue amlodipine, clonidine patch, carvedilol Mood disorder Continue fluoxetine, mirtazapine DVT prophylaxis with heparin subQ Full code reason for continued hospitalization: Uncontrolled blood pressure, working up chest pain Quality Stroke Does the patient have a stroke diagnosis?: No VTE Prior VTE?: No VTE Risk Level:: Medical - moderate - high VTE Device Contraindication: Treatment Not Indicated VTE Drug Contraindication: N/A - Med Ordered
[2024-10-24] MEDS: predniSONE 10 MG TABLET PO (09:26)
--- NOTE | 2024-10-24 09:56 | MHC.CM.PN ---
Addendum entered by Oliva Lucas RN 10/24/24 13:05: PT NOW INPT FOR PERICARDIAL EFFUSION, IMM DELIVERED TO BEDSIDE. Original Note: MAHAN 11/03/24, EMR REVIEWED, PT ADMITTED W/CHEST PAIN/?PERICARDITIS, CM MET W/PT WHO REPORTS SHE LIVES W/DTR WHO ASSISTS W/NEEDS, PT USES A CANE/ROLLATOR/GRAB BARS THROUGHOUT BR, PT DENIES HOME SERVICES AND HAS OUTPT HD AT [facility] M/F AND USES [facility] FOR TRANSPORT, PT'S GOAL FOR DC IS HOME AND PT WILL CALL [facility]TR FOR TRANSPORT. PCP ON FILE VERIFIED, PT REPORTS HER DTR AMARA IS HER HCP, COPY REQUESTED.
--- NOTE | 2024-10-24 13:11 | PM.PNCARD ---
Subjective Subjective Date of Service: 10/24/24 Interval history: Seen examined at bedside. Overall clinically improved with blood pressure controlled. Discussed about stress testing and she wishes to do it inpatient. Physical Exam Vital Signs: Last Vital Signs Temp 98.8 F 10/24/24 11:46 Pulse 69 10/24/24 11:46 Resp 18 10/24/24 11:46 BP 141/65 H 10/24/24 11:46 Pulse Ox 95 10/24/24 11:46 O2 Del Method Room Air 10/24/24 11:46 BMI result Body Mass Index 28.9 GENERAL APPEARANCE: in no acute distress, pleasant. NECK: no jugular venous distention. SKIN: no suspicious lesions, warm and dry. HEART: Ejection systolic murmur aortic area, regular rate and rhythm. Left AV fistula bruit heard over the left chest wall. LUNGS: clear to auscultation bilaterally. ABDOMEN: soft, nontender. EXTREMITIES: Mild edema at the ankles.. PERIPHERAL PULSES: equal. NEUROLOGIC: No gross deficits, AAO X 3 Objective Labs and Meds 10/24/24 06:45 10/24/24 06:45 Lab results: Laboratory Results - last 24 hr 10/23/24 10/23/24 10/24/24 10:11 12:33 06:45 WBC 12.1 H RBC 3.56 L Hgb 11.5 L Hct 35.1 L MCV 98.6 H MCH 32.3 MCHC 32.8 RDW 15.8 Plt Count 155 L MPV 10.3 Immature Gran % (Auto) 3.2 H Neut % (Auto) 77.3 H Lymph % (Auto) 11.7 L [place] % (Auto) 7.0 Eos % (Auto) 0.6 Baso % (Auto) 0.2 Lymph # (Auto) 1.4 [place] # (Auto) 0.9 Eos # (Auto) 0.1 Baso # (Auto) 0.0 Abs Immat Gran (auto) 0.39 H Absolute Neuts (auto) 9.3 H Absolute Nucleated RBC 0.000 Nucleated RBC % (auto) 0.0 ESR 17 Sodium 144 Potassium 3.6 Chloride 102 Carbon Dioxide 30 H Anion Gap 16 BUN 50 H Creatinine 3.40 H Estim Creat Clear Calc 14.3 Estimated GFR 13 Random Glucose 116 H Estimat Average Glucose 117 Hemoglobin A1c % 5.7 Calcium 8.6 Troponin I High Sens 50.4 H* C-Reactive Protein < 0.10 Progress Note: A&P Assessment and plan (1) Chest pain: Status: Acute (2) Pericarditis: Status: Acute (3) Essential hypertension: Status: Acute Plan Pleasant 69-year-old female with previous stroke and carotid stenosis, hypertension and end-stage renal disease. She presented from dialysis unit with chest pressure and significantly elevated blood pressures. With blood pressure controlled nitroglycerin her symptoms improved. She has been treated recently multiple times for pericarditis. ECG did have some changes consistent with pericarditis but symptoms were unusual for pericarditis. In any case she has done well with blood pressure control and she continues to be on prednisone 10 mg for pericarditis. We discussed about a stress test and she is agreeable. We will do a Lexiscan on her because she is unable to exercise due to previous CVA affecting the right side of the body. Thank you for allowing me to participate in the care of your patient. Please feel free to contact me if you have any questions. Time Spent With Patient Time: Total time managing care of this patient today ____ minutes. Progress Note: Quality Stroke Does the patient have a stroke diagnosis?: No Procedures Date of Service Date of Service: 10/24/24
[2024-10-24] MEDS: Mirtazapine 30 MG TABLET PO (21:12)
[2024-10-25 03:31] VITALS: BP 110/65; PULSE 76; RESP 18; TEMP 36.4; O2SAT 96
[2024-10-25] MEDS: Omeprazole 20 MG CAPSULE.DR PO (06:26)
[2024-10-25 06:51] VITALS: BP 180/74; PULSE 73; RESP 18; TEMP 36.7; O2SAT 96
[2024-10-25] MEDS: FLUoxetine HCl 20 MG CAPSULE 40 MG PO (07:48)
[2024-10-25] MEDS: Cholecalciferol (Vitamin D3) 25 MCG TABLET 50 MCG PO (07:48)
[2024-10-25] MEDS: Multivitamin TABLET 1 TAB PO (07:49)
[2024-10-25] MEDS: carvediloL 25 MG TABLET PO (07:49)
[2024-10-25] MEDS: amLODIPine Besylate 5 MG TABLET PO (07:49)
[2024-10-25] MEDS: allopurinoL 100 MG TABLET PO (07:49)
[2024-10-25] MEDS: Atorvastatin Calcium 80 MG TABLET PO (07:49)
[2024-10-25] MEDS: Aspirin Enteric Coated 81 MG TABLET.DR PO (07:49)
[2024-10-25] MEDS: Mirabegron 25 MG TAB.ER.24H PO (07:49)
[2024-10-25] MEDS: predniSONE 10 MG TABLET PO (07:49)
[2024-10-25] MEDS: 0.9 % Sodium Chloride Flush 3 ML SYRINGE IVFLUSH (07:50)
[2024-10-25 10:56] VITALS: BP 152/60; PULSE 71; RESP 20; TEMP 36.5; O2SAT 96
--- NOTE | 2024-10-25 11:28 | MHC.CM.PN ---
Addendum entered by Oliva Lucas RN 10/25/24 11:59: VNA UPDATED VIA [employer] Original Note: EMR REVIEWED, PT W/PERICARDITIS, PER HOSPITALIST PLAN FOR STRESS TEST TODAY AND LIKELY DC TOMORROW 10/26 W/RWESUMPTION OF CARETENDERS, HD AT AND FAMILY SUPPORT, CM WILL CONT TO FOLLOW DC NEEDS.
[2024-10-25] MEDS: Acetaminophen 325 MG TABLET 650 MG PO (11:29)
[2024-10-25] MEDS: Ezetimibe 10 MG TABLET PO (11:29)
--- NOTE | 2024-10-25 14:23 | P.PNCA_ITS ---
Subjective Subjective Date of Service: 10/25/24 Interval history: Seen and examined at bedside. She completed her nuclear perfusion imaging today. Physical Exam Vital Signs: Last Vital Signs Temp 97.7 F 10/25/24 10:56 Pulse 71 10/25/24 10:56 Resp 20 10/25/24 10:56 BP 152/60 H 10/25/24 10:56 Pulse Ox 96 10/25/24 10:56 O2 Del Method Room Air 10/25/24 10:56 BMI result Body Mass Index 28.9 GENERAL APPEARANCE: in no acute distress, pleasant. NECK: no jugular venous distention. SKIN: no suspicious lesions, warm and dry. HEART: Ejection systolic murmur aortic area, regular rate and rhythm. Left AV fistula bruit heard over the left chest wall. LUNGS: clear to auscultation bilaterally. ABDOMEN: soft, nontender. EXTREMITIES: Mild edema at the ankles.. PERIPHERAL PULSES: equal. NEUROLOGIC: No gross deficits, AAO X 3 Objective Labs and Meds 10/24/24 06:45 10/24/24 06:45 Progress Note: A&P Assessment and plan (1) Essential hypertension: Status: Acute (2) Pericarditis: Status: Acute (3) Chest pain: Status: Acute Plan Pleasant 69 year female who presented with chest discomfort. Recent pericarditis episodes for which she was on aspirin and eventually was started on prednisone also. She is taking prednisone 10 mg daily. The chest pain was quite unusual for pericarditis and was a heavy pressure-like feeling which improved with nitroglycerin. At that time her blood pressure was also elevated at 200 systolic. We discussed and did echocardiography followed by nuclear stress imaging today. I have looked at the raw images so far and they look normal to me. We will wait for all reserved by 1 of my colleagues. Currently presentation likely due to elevated blood pressure. Blood pressure control and close monitoring of blood pressure is important and she will follow up with [facility]. Thank you for allowing me to participate in the care of your patient. Please feel free to contact me if you have any questions. Time Spent With Patient Time: Total time managing care of this patient today ____ minutes. Progress Note: Quality Stroke Does the patient have a stroke diagnosis?: No Procedures Date of Service Date of Service: 10/25/24
--- NOTE | 2024-10-25 15:06 | PM.DS ---
DS: Providers Provider Date of Service: 10/25/24 Date of admission: 10/24/24 12:13 Date of discharge: 10/25/24 Primary care physician: Genie Munguia NP Consults: 10/23/24 16:01 Consult to Cardiology Routine Consulting Provider: [facility] Reason for consultation: chest pain, ?pericarditis 10/24/24 09:41 Consult to Nephrology Routine Consulting Provider: [facility] Reason for consultation: esrd DS: Diagnosis Discharge Diagnosis (1) Chest pain: Status: Acute (2) Uncontrolled hypertension: Status: Acute (3) Hypertensive urgency: Status: Acute DS: Summary Hospital Course Hospital Course: Admission note HPI 69-year-old female with history of ESRD on HD M/F (dialyzed this morning), endometriosis, hypertension, hyperlipidemia, GERD, gout, mood disorder, osteoporosis, and secondary hyperparathyroidism presented to the ED earlier today during dialysis session due to retrosternal chest pain that lasted about 10-15 minutes. Daughter is at bedside who assists with history as patient is reported to have short-term memory issues. The pain was nonradiating and was described as pressure. There was associated dyspnea. She was given nitro x3 and symptoms resolved followeding the 3rd nitro tab. She states her blood pressure had gone low during dialysis and then robounded and was quite elevated (she does not recall the bp's) and that was when the pain set in. She does not recall if there was any improvement or exacerbation with position changes, she states she feels like she could not move. She denies any fevers, chills, abdominal pain, nausea, vomiting, diarrhea, urinary symptoms, cough, palpitations, lightheadedness. There has been no recurrence of the dyspnea and chest pain. She has a history of pericarditis, initially diagnosed in 06/28/2024. She was recently admitted again to [facility] with chest pain and was ultimately diagnosed with acute pericarditis and was discharged on 09/19. Inflammatory markers were initially negative but were trended and did elevate. She was discharged on high dose aspirin taper which she has completed as well as a prednisone taper. She currently has 1 week left of 10 mg daily and then will complete 2 weeks of 5 mg daily. ESR at [facility] at its highest was 26, CRP within normal limits. She did not undergo echocardiogram during that admission. She states the pain during this admission was different than that which was experience this morning. She states she had a constant chest pressure that worsened when lying down flat. Since arrival to the hospital, patient has been quite hypertensive, on exam blood pressure 186/130. Vitals otherwise stable. She has a leukocytosis of 13.1 and anemia with H/H 11.4/34.1%, MCV only mildly elevated at 98.3. Creatinine baseline, electrolyte levels normal except for potassium of 3.1. Glucose 238. AST 26, ALT 39. Initial troponin 47.2, repeat 50.4, consistent with baseline. BNP 433. ESR and CRP within normal limits. Negative for COVID-19, RSV, influenza. Chest x-ray shows cardiomegaly but otherwise unremarkable. EKG shows NSR, rate [address] elevations in the inferior and lateral leads. Hospital course The patient was evaluated for reported Chest pain concurrent with Hypertensive urgency at time of presentation. She had troponin flat and no EKG changes to suggest ACS. The pain was not consistent with pericarditis pain. Echo was done showing moderately increased left ventricular wall thickness, EF 65-70%, mild , moderate pericardial effusion. Evaluated by cardiology who recommended Stress testing. she had two parts which were negative for signs of ischemia. Cardiology recommended to continue aspirin statin for now and follow up with her primary cardiology team at [facility]. recommended better control of blood pressure. Losartan 50 mg daily added at time of discharge. To follow with PCP with 1 week readings of BP for further adjustment. to check BMP next week. To continue rest of her home medicaitons amlodipine, clonidine patch, carvedilol. She has history of Recurrent pericarditis with moderate pericardial effusion. Will continue prednisone taper, follow up Cardiology For End-stage renal disease She will continue on hemodialysis as scheduled. Discharge plan Add Losartan for better blood pressure control Monitor blood pressure at home and report 1 week of readings to PCP\Cardiology for further adjustment check blood work next week Time Attestation Discharge Coordination Time (in mins): 42 Quality: Safe Use of Opioids Does Pt have an Active Cancer Diagnosis on the Problem List?: No Quality: Stroke Does the patient have a stroke diagnosis?: No Physical Exam Vital Signs: Vital Signs: Last Vital Signs Temp 97.7 F 10/25/24 10:56 Pulse 71 10/25/24 10:56 Resp 20 10/25/24 10:56 BP 152/60 H 10/25/24 10:56 Pulse Ox 96 10/25/24 10:56 O2 Del Method Room Air 10/25/24 10:56 BMI result Body Mass Index 28.9 Const: Other: Constitutional : Awake, interactive, not in distress Neck : Normal inspection, Supple Cardiovascular : RRR, no JVP, no lower extremity edema Respiratory : good bilateral air entry, no crackles, wheezes or rhonchi Gastrointestinal: soft, lax, Normal bowel sounds, Non tender Skin : Warm, Dry Neurological : Alert & oriented x3, No focal deficit DS: Data Imaging Chest x-ray: Radiologist's impression: ITS Impressions Chest X-Ray 10/23/24 09:49 IMPRESSION: Cardiomegaly. The lungs are clear. Electronically signed by: Narinder Altamirano MD 10/23/2024 10:18 AM EDT RP Myocardial Perfusion Scan Nuc Med 10/24/24 10:58 Impression: 1. Myocardial perfusion imaging study shows normal myocardial perfusion 2. Gated LVEF is 62% 3. Transient ischemic dilatation not present Nondiagnostic changes on EKG. Electronically signed by: Eliu Alvarez MD 10/25/2024 02:56 PM EDT RP Discharge Plan Discharge Anticipated Discharge Date/Time: 10/25/24 14:51 Patient Disposition: Home Health Service Discharge Diagnosis: chest pain Uncontrolled Hypertension Referrals: [facility] [Outside] - 1 Week Genie Munguia NP [Primary Care Provider] - 1 Week Discharge Medications: New losartan 50 mg tablet 50 mg PO DAILY Qty: 90 0RF Continued fluoxetine 40 mg capsule 40 mg PO DAILY atorvastatin 80 mg tablet 80 mg PO DAILY carvedilol 25 mg tablet 25 mg PO BID prednisone 10 mg tablet See Taper PO DAILY Taper: Prednisone 10 mg daily for 7 Days and 0 Hour 5 mg daily for 14 Days and 0 Hour Rx Instructions: TAKE 3 TABS DAILY X 2 WEEKS, HAVE PCP CHECK CRP AND IF NORMAL TAKE 2 TABS DAILY X 2 WEEKS, TAKE 1 TAB DAILY X 2 WEEKS, TAKE 1/2 TAB DAILY X 2 WEEKS AND STOP clonidine 0.2 mg/24 hr patch weekly 1 patch topical BELLA amlodipine 5 mg tablet 5 mg PO DAILY allopurinol 100 mg tablet 100 mg PO DAILY mirtazapine 30 mg tablet 30 mg PO BEDTIME ezetimibe 10 mg tablet 10 mg PO DAILY cholecalciferol (vitamin D3) [Vitamin D3] 50 mcg (2,000 unit) tablet 50 mcg PO DAILY mirabegron [Myrbetriq] 25 mg tablet extended release 24 hr 25 mg PO DAILY multivitamin Tablet 1 tab PO DAILY aspirin 81 mg Tablet,Delayed Release (Dr/Ec) 81 mg PO DAILY calcitriol 0.5 mcg Capsule 0.5 mcg PO MOWEFR fluticasone propionate 50 mcg/actuation [place],Suspension 1 spray INTRANASAL BID PRN (Reason: Allergy Symptoms) Rx Instructions: administer into each nostril Bacillus subtilis-inulin 1.5 billion cell-1 gram Tablet,Chewable 1 tab PO DAILY pantoprazole 40 mg tablet,delayed release (DR/EC) 40 mg PO DAILY@0630 Discharge Orders: Discharge Order (Routine); Ordered 10/25/24 Ordered By: Radha Langston Diet: Low salt diet Activity on Discharge: As tolerated Stand Alone Forms: Patient Portal Discharge page Print Language: Yoruba Other Ambulatory Orders: Basic Metabolic Panel (Routine) Timeframe: 1 Week Facility: [facility] - Location: Laboratory Ordered By: Radha Langston Care Plan Goals: Add Losartan for better blood pressure control Monitor blood pressure at home and report 1 week of readings to PCP\Cardiology for further adjustment check blood work next week Health Concerns: Uncontrolled hypertension Plan of Treatment: Losartan Assessment: as above
--- NOTE | 2024-10-25 15:51 | MHC.CM.PN ---
PT MEDICALLY CLEARED FOR DC HOME W/RESUMP OF CARETENDERS VNA, OUPT [facility] M/F AND FAMILY SUPPORT, VNA UPDATED AND PT WILL CONTACT [facility] FOR TRANSPORT.
[2024-10-25 15:52] VITALS: BP 142/76; PULSE 74; RESP 18; TEMP 36.6; O2SAT 96
[2024-10-25] MEDS: Losartan Potassium 50 MG TABLET PO (16:02)
== END 2024-10-25 18:03 | disposition home health service (06) | DRG 304 ==
LOC: HO.ED 13:31 → HO.EDOVER 16:29 → HO.IMC 19:22
PROVIDERS: Physician Assistant Medical; Admitting Provider Physician Assistant; Emergency Provider Emergency Medicine Emergency Medical Services; PCP Nurse Practitioner Family; Visit Provider Student in an Organized Health Care Education/Training Program
DX: I16.0 Hypertensive urgency (principal); N18.6 End stage renal disease; I31.9 Disease of pericardium, unspecified; F39 Unspecified mood [affective] disorder; I35.0 Nonrheumatic aortic (valve) stenosis; I12.0 Hypertensive chronic kidney disease with stage 5 chronic kidney disease or end stage renal disease; E78.5 Hyperlipidemia, unspecified; M10.9 Gout, unspecified; D63.1 Anemia in chronic kidney disease; Z20.822 Contact with and (suspected) exposure to COVID-19; Z99.2 Dependence on renal dialysis; Z87.891 Personal history of nicotine dependence; Z79.82 Long term (current) use of aspirin; Z79.899 Other long term (current) drug therapy
CPT/HCPCS: 0241U; 36415; 71045; 78452; 80048; 80076; 83036; 83735; 83880; 84484; 85025; 85610; 85652; 85730; 86140; 93005; 93017; 93306; 99222; 99285; A9500; J0280; J0360; J1644; J2785

== ENCOUNTER → 2024-10-23 09:49 | Outpatient (BNV) | payer MEDICARE, MEDICAID, SELFPAY | PROVIDERS: Emergency Provider Emergency Medicine Emergency Medical Services; PCP Nurse Practitioner Family; Visit Provider Radiology Diagnostic Radiology | DX: R07.9 Chest pain, unspecified (principal); I51.7 Cardiomegaly | CPT/HCPCS: 71045 ==

== ENCOUNTER → 2024-10-23 09:52 | Outpatient (BNV) | payer MEDICARE, MEDICAID, SELFPAY | PROVIDERS: Emergency Provider Emergency Medicine Emergency Medical Services; PCP Nurse Practitioner Family; Visit Provider Internal Medicine Cardiovascular Disease | DX: R07.9 Chest pain, unspecified (principal); I10 Essential (primary) hypertension | CPT/HCPCS: 93010; 99223 ==

== ENCOUNTER → 2024-10-23 16:01 | Outpatient (BNV) | payer MEDICARE, MEDICAID, SELFPAY | PROVIDERS: Admitting Provider Physician Assistant; Emergency Provider Emergency Medicine Emergency Medical Services; PCP Nurse Practitioner Family; Visit Provider Physician Assistant | DX: R07.9 Chest pain, unspecified (principal); I10 Essential (primary) hypertension; I16.0 Hypertensive urgency | CPT/HCPCS: 99222; 99232; 99239 ==

== ENCOUNTER → 2024-10-24 12:13 | Outpatient (BNV) | payer MEDICARE, MEDICAID, SELFPAY | PROVIDERS: Admitting Provider Physician Assistant; Emergency Provider Emergency Medicine Emergency Medical Services; PCP Nurse Practitioner Family | DX: R07.9 Chest pain, unspecified (principal) | CPT/HCPCS: 78452; 93016; 93018 ==

== ENCOUNTER 2025-02-25 14:40 | Emergency (ER) | payer MEDICARE, MEDICAID, SELFPAY ==
[2025-02-25] VITALS (10 sets, daily range): BP systolic 77–155; BP diastolic 30–64; PULSE 98–105; RESP 17–19; TEMP 36.6–37; O2SAT 93–99; BMI 36.1
--- NOTE | ~2025-02-25 | XR_ITS ---
CLINICAL HISTORY: weakness Single view of the chest. COMPARISON: XR chest dated 10/23/24 at 09:59 EDT FINDINGS: Cardiomegaly, stable. Atherosclerotic thoracic aorta. No consolidation. No pleural effusion or pneumothorax. Mild spondylosis. No acute fracture. IMPRESSION: 1. No consolidation. This document has been electronically signed by: Bhaskar Schwartz MD on 02/25/2025 18:33:22
--- NOTE | ~2025-02-25 | CT_ITS ---
CLINICAL HISTORY: diarrhea in Peritoneal dialysis patient CT abdomen and pelvis without IV contrast. COMPARISON: None provided. FINDINGS: Minimal atelectasis along the posterior right lower lobe. Small hiatal hernia. Normal gallbladder. Noncontrast appearance of the liver, spleen, pancreas and adrenal glands are unremarkable. Diminutive right kidney. No hydronephrosis or hydroureter bilaterally. No renal or ureteral calculus bilaterally. Small amount of fluid present within the lower pelvis. Peritoneal dialysis catheter present in the right lower quadrant. Appendix is not definitively seen. Mild colonic stool burden. No bowel obstruction. No mesenteric or retroperitoneal lymphadenopathy. Moderate aortoiliac atherosclerotic vascular calcifications. Renal artery stents present bilaterally. Urinary bladder is unremarkable given degree of distention. Dystrophic calcification along the right adnexa likely representing a calcified fibroid. Small fat containing umbilical hernia. No acute fracture or suspicious bone lesion. IMPRESSION: 1. No cause for patient's symptoms identified. No bowel obstruction. No evidence of diverticulitis. No CT evidence of colitis. 2. Small amount of free fluid present primarily within the lower pelvis likely secondary to peritoneal dialysis. 3. No evidence of renal obstruction. No renal or ureteral calculus bilaterally. This document has been electronically signed by: Bhaskar Schwartz MD on 02/25/2025 19:26:53
--- NOTE | 2025-02-25 14:46 | ECG_ITS ---
Test Reason : tachy Blood Pressure : */* mmHG Vent. Rate : 108 BPM Atrial Rate : 108 BPM P-R Int : 182 ms QRS Dur : 78 ms QT Int : 382 ms P-R-T Axes : 46 30 82 degrees QTcB Int : 511 ms Sinus tachycardia T wave abnormality, consider lateral ischemia Abnormal ECG When compared with ECG of 23-Oct-2024 12:23, No significant change was found Referred By: Heather Shi Electronically Signed By: Dung Waters
--- NOTE | 2025-02-25 15:07 | ED.GENADULT ---
HPI - General Adult General Chief complaint: General Medical Stated complaint: BP super low, heart racing, N/D Time Seen by Provider: 02/25/25 16:18 History of Present Illness ED Provider: Lyn GARZA narrative: The patient is a 70-year-old woman. She has a history of chronic renal failure. She is a dialysis patient. She has been in significant renal failure for about 4 years. She originally did hemodialysis. She has been doing home peritoneal dialysis for several months now. She lives with her daughter. According to the daughter the patient has had fairly frequent loose stools for a proximally 3 weeks. There has been no associated fever. They have been in contact with the mushroom farmer who recommended they discuss the problem with the PCP. There was outpatient stool testing which has been negative for C diff. the patient has had low blood pressures for the last 3 days. Normally the patient is hypertensive. The patient is on antihypertensive medications. Today the patient just seemed too weak to be at home in the daughter brought her to the emergency room. The patient's daughter says that she has fairly frequent UTIs. She apparently finished a course of Bactrim about 4 or 5 days ago for UTI. She has not had any fevers at home. No abdominal pain. She feels weak and worn out. Related Data Home Medications ?Medication ?Instructions ?Recorded ?Confirmed Bacillus subtilis 1.5 billion 1 tab PO DAILY 10/23/24 10/23/24 cell-inulin 1 gram chewable tablet allopurinol 100 mg tablet 100 mg PO DAILY 10/23/24 10/23/24 amlodipine 5 mg tablet 5 mg PO DAILY 10/23/24 10/23/24 aspirin 81 mg tablet,delayed 81 mg PO DAILY 10/23/24 10/23/24 release atorvastatin 80 mg tablet 80 mg PO DAILY 10/23/24 10/23/24 calcitriol 0.5 mcg capsule 0.5 mcg PO MOWEFR 10/23/24 10/23/24 carvedilol 25 mg tablet 25 mg PO BID 10/23/24 10/23/24 cholecalciferol (vitamin D3) 50 50 mcg PO DAILY 10/23/24 10/23/24 mcg (2,000 unit) tablet (Vitamin D3) clonidine 0.2 mg/24 hr weekly 1 patch topical BELLA 10/23/24 10/23/24 transdermal patch ezetimibe 10 mg tablet 10 mg PO DAILY 10/23/24 10/23/24 fluoxetine 40 mg capsule 40 mg PO DAILY 10/23/24 10/23/24 fluticasone propionate 50 1 spray intranasal BID PRN Allergy 10/23/24 10/23/24 mcg/actuation nasal Symptoms spray,suspension mirabegron 25 mg tablet,extended 25 mg PO DAILY 10/23/24 10/23/24 release 24 hr (Myrbetriq) mirtazapine 30 mg tablet 30 mg PO BEDTIME 10/23/24 10/23/24 multivitamin 1 tab PO DAILY 10/23/24 10/23/24 pantoprazole 40 mg tablet,delayed 40 mg PO DAILY@0630 10/23/24 10/23/24 release prednisone 10 mg tablet See Taper PO DAILY 10/23/24 10/23/24 Previous Rx's ?Medication ?Instructions ?Recorded losartan 50 mg tablet 50 mg PO DAILY #90 tabs 10/25/24 Allergies Allergy/AdvReac Type Severity Reaction Status Date / Time No Known Allergies Allergy Verified 02/25/25 15:19 Review of Systems Review of Systems: Yes all other systems are reviewed and are negative [facility] Past Medical History Medical History (Updated 02/25/25 @ 20:36 by Arpan Nicholson MD) Essential hypertension Pericarditis Social History Social History Household Members: Family Household Members Other:: daughter Housing: House Do you presently have visiting nurse or other home services: Yes ([facility] Alcohol intake: unknown Patient Tobacco Use Status: Former Tobacco user service: No Physical Exam ED Vital Signs: Vital Signs - 24 hr 02/25/25 15:07 02/25/25 15:54 02/25/25 16:20 Temperature 98 F 97.9 F 97.9 F Pulse Rate 105 H 102 H 103 H Respiratory Rate 18 19 19 Blood Pressure 77/52 L 81/30 L 89/44 L Pulse Oximetry 93 96 97 Oxygen Delivery Method Room Air Room Air Room Air 02/25/25 16:23 02/25/25 16:48 02/25/25 17:26 Temperature 98.6 F Pulse Rate 102 H 98 Respiratory Rate Blood Pressure 98/45 L 100/41 L Pulse Oximetry Oxygen Delivery Method 02/25/25 17:40 02/25/25 18:00 02/25/25 20:23 Temperature 98.0 F Pulse Rate 99 105 H Respiratory Rate 18 17 Blood Pressure 129/54 L 155/64 H Pulse Oximetry 99 Oxygen Delivery Method Room Air BMI result Body Mass Index 36.1 Const Other: The patient is a somewhat chronically ill-appearing 70-year-old. She looks tired and weak but does not appear obviously toxic. HENMT Other: Mucous membranes may be slightly dry. Otherwise the facial exam is unremarkable. The face is symmetrical. Eyes General: appearance normal, both eyes and all related structures Neck Neck: Yes normal visual inspection, Yes full ROM, Yes no lymphadenopathy and Yes no JVD Resp Effort & Inspection: normal respiratory effort Auscultation: clear to auscultation bilaterally Cardio Rate: regular rate Rhythm: regular rhythm Heart sounds: S1 normal heart sound present and S2 normal heart sound present GI Other: The patient has a peritoneal dialysis catheter on her abdomen. The abdomen is soft and nontender. Skin Other: Skin is pale and dry. Poor turgor. Neuro Other: The patient is awake but seems fatigued and slightly weak. She does not seem confused or altered. Cranial nerves are grossly intact. She moves her extremities symmetrically and appropriately. No obvious focal neurological deficit. Extrem Other: There is no calf swelling or tenderness. No asymmetry. No peripheral edema. 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 NO abdominal pain, vomiting, or fever. BP 77/52 in triage. Will order labs, UA, stool studies. Brought direct to room. VSS Medications Administered Discontinued Medications Generic Name Dose Route Start Last Admin Trade Name Freq PRN Reason Stop Dose Admin Sodium Chloride 1,000 mls @ 999 mls/hr 02/25/25 16:45 02/25/25 17:37 Ns IV 02/25/25 17:45 Infused .Q1H1M JASS Infusion Sodium Chloride 1,000 mls @ 999 mls/hr 02/25/25 18:00 02/25/25 18:49 Ns IV 02/25/25 19:00 Infused .Q1H1M JASS Infusion Medical Decision Making Medical Decision Making [facility] Narrative: The patient is a 70-year-old woman with a history of chronic renal failure who does home peritoneal dialysis. She has been doing this for several months. She was brought to the hospital by her daughter today because of weakness associated with low blood pressures at home. She apparently has had chronic loose stools for 3 weeks. Recently she had outpatient testing of her stool that included a negative for C diff assay as well as a negative assay for Shigella, Salmonella, and E coli. She has not had any abdominal pain associated with this. She has had some nausea but no significant vomiting. She has been eating. She recently finished a course of Bactrim for UTI. This was about 4 days ago. She is currently complaining of some dysuria. The patient is blood pressure was somewhat low and her heart rate was slightly tachycardic. Rectal temperature was normal. The patient looks dry clinically. Her creatinine today is 16. Her BUN is also somewhat higher than usual. I believe her baseline creatinine is somewhere between 4 and 8. Her BUN today is 64. I believe her baseline BUN is somewhere between 30 and 50. She was given IV fluids to address her hypotension and tachycardia. Her vital signs improved. Rectal temperature was normal. She has not produced any stool samples here for testing. Her abdomen is benign. She is also not produced any urine. A bladder scan showed only a small amount of urine in her bladder even after 2 L of IV fluids. I discussed the case with Dr. Pruitt who covering for Dr. Funk of Nephrology. The patient should be hospitalized for hydration and further assessment. A CT of the abdomen and pelvis is negative. A chest x-ray is unremarkable. We do not admit patients with peritoneal dialysis at this hospital. The patient was accepted in transfer to [facility], Dr. Phillips. Lab Data 02/25/25 15:52 02/25/25 15:52 Labs: Lab Results 02/25/25 02/25/25 Range/Units 15:52 19:34 WBC 17.8 H (4.8-10.8) X10*3/uL RBC 3.04 L (4.20-5.50) X10*6/uL Hgb 10.1 L (12.0-16.0) g/dl Hct 30.5 L (37.0-47.0) % MCV 100.3 H (80.0-98.0) fL MCH 33.2 H (27.0-33.0) pg MCHC 33.1 (31.0-35.0) g/dl RDW 14.3 (11.0-16.0) % Plt Count 236 D (160-400) X10*3/uL MPV 9.6 (9.4-12.3) fL Immature Gran % (Auto) 3.3 H (0.0-0.4) % Neut % (Auto) 78.5 H (45-73) % Lymph % (Auto) 8.2 L (20-40) % [place] % (Auto) 8.2 (2-11) % Eos % (Auto) 1.5 (0-4) % Baso % (Auto) 0.3 (0-2) % Lymph # (Auto) 1.5 (1.2-4.9) X10*3/uL [place] # (Auto) 1.5 H (0.1-1.2) X10*3/uL Eos # (Auto) 0.3 (0.0-0.4) X10*3/uL Baso # (Auto) 0.1 (0.0-0.2) X10*3/uL Abs Immat Gran (auto) 0.59 H (0.00-0.03) X10*3/uL Absolute Neuts (auto) 13.9 H (2.0-8.3) x10*3/uL Absolute Nucleated RBC 0.000 (0.0-0.012) X10*3/uL Nucleated RBC % (auto) 0.0 (0.0-0.2) /100WBC Sodium 138 (135-145) mmol/L Potassium 3.8 (3.3-5.1) mmol/L Chloride 103 (96-108) mmol/L Carbon Dioxide 15 L (22-29) mmol/L Anion Gap 24 H (12-20) BUN 64 H (9-16) mg/dL Creatinine 16.97 H* (0.5-1.4) mg/dL Estim Creat Clear Calc 2.9 Estimated GFR 2 Random Glucose 157 H (60-115) mg/dL Lactic Acid 1.1 (0.5-2.0) mmol/L Calcium 8.9 (8.4-10.2) mg/dL Magnesium 2.0 (1.6-2.6) mg/dL Total Bilirubin 0.2 (0.0-1.0) mg/dL Direct Bilirubin 0.2 (0.0-0.5) mg/dL AST 37 H (5-31) U/L ALT 18 (0-31) U/L Alkaline Phosphatase 45 (39-117) U/L C-Reactive Protein 4.41 H (< or = 0.50) mg/dL Total Protein 6.2 L (6.5-8.0) g/dL Albumin 3.4 L (3.5-5.0) g/dL Influenza Type A (PCR) NEGATIVE (Negative) Influenza Type B (PCR) NEGATIVE (Negative) RSV RNA Qual (PCR) NEGATIVE (Negative) SARS-CoV-2 RNA (RT-PCR) NEGATIVE (Negative) Independent Interpretation I performed an independent interpretation of an: EKG Interpretation: EKG at 14:55 shows sinus tachycardia at 108 beats per minute. There are some T-wave abnormalities similar to previous EKG. Critical Care Time Critical Care Time Critical Care Time: Yes Total Critical Care Time: 35 Attestation: The patient was critically ill with a high probability of imminent or life-threatening deterioration. ?I spent greater than 30 minutes of discontinuous time evaluating the patient, delivering critical care at the bedside, discussing evaluating data with consultants. ?Critical care time does not include time spent performing separately billable procedures or teaching. ?Time spent performing critical care with 35 minutes. Discharge Plan Discharge Clinical Impression: Dehydration, Elevated serum creatinine, Chronic renal failure, Weakness, Hypotension Patient Disposition: [facility] Transfer Details: [facility] Prescriptions: No Action fluoxetine 40 mg capsule 40 mg PO DAILY atorvastatin 80 mg tablet 80 mg PO DAILY carvedilol 25 mg tablet 25 mg PO BID prednisone 10 mg tablet See Taper PO DAILY Taper: Prednisone 10 mg daily for 7 Days and 0 Hour 5 mg daily for 14 Days and 0 Hour Rx Instructions: TAKE 3 TABS DAILY X 2 WEEKS, HAVE PCP CHECK CRP AND IF NORMAL TAKE 2 TABS DAILY X 2 WEEKS, TAKE 1 TAB DAILY X 2 WEEKS, TAKE 1/2 TAB DAILY X 2 WEEKS AND STOP clonidine 0.2 mg/24 hr patch weekly 1 patch topical BELLA amlodipine 5 mg tablet 5 mg PO DAILY allopurinol 100 mg tablet 100 mg PO DAILY mirtazapine 30 mg tablet 30 mg PO BEDTIME ezetimibe 10 mg tablet 10 mg PO DAILY cholecalciferol (vitamin D3) [Vitamin D3] 50 mcg (2,000 unit) tablet 50 mcg PO DAILY mirabegron [Myrbetriq] 25 mg tablet extended release 24 hr 25 mg PO DAILY multivitamin Tablet 1 tab PO DAILY aspirin 81 mg Tablet,Delayed Release (Dr/Ec) 81 mg PO DAILY calcitriol 0.5 mcg Capsule 0.5 mcg PO MOWEFR fluticasone propionate 50 mcg/actuation [place],Suspension 1 spray INTRANASAL BID PRN (Reason: Allergy Symptoms) Rx Instructions: administer into each nostril Bacillus subtilis-inulin 1.5 billion cell-1 gram Tablet,Chewable 1 tab PO DAILY pantoprazole 40 mg tablet,delayed release (DR/EC) 40 mg PO DAILY@0630 losartan 50 mg tablet 50 mg PO DAILY Qty: 90 0RF Interventions: Acute Care Transfer Worksheet (ED) Last Done: 02/25/25 20:35 Print Language: Upper Sorbian
--- NOTE | 2025-02-25 15:56 | PC.NURSE ---
Pt to ED 19 from triage, calm and cooperative with care. Alert and answering questions appropriately. Reports diarrhea x 3 weeks, recent po abx for multiple UTI. Dtr at bedside and states per GI panel from PCP pt does not have C-diff. Pt a febrile but noted to be hypotensive at 81/30. Pt has old AVF to nikia LOPEZ does home PD and cath noted to left abdomen. Denies pain at this time. #20 to [facility], labs collected and sent.
[2025-02-25 16:04] LABS: MANUAL DIFF FLAG NO
[2025-02-25 16:06] LABS: Hematocrit 30.5 % (37.0-47.0); Hemoglobin 10.1 g/dl (12.0-16.0); Imm Gran Abs Auto 0.59 X10*3/uL (0.00-0.03); Imm Gran Pct Auto 3.3 % (0.0-0.4); Lymphocytes Absolute Auto 1.5 X10*3/uL (1.2-4.9); Mean Corpuscular HGB Conc 33.1 g/dl (31.0-35.0); Mean Corpuscular Hemoglobin 33.2 pg (27.0-33.0); Mean Corpuscular Volume 100.3 fL (80.0-98.0); NRBC Abs Auto 0.000 X10*3/uL (0.0-0.012); NRBC Pct Auto 0.0 /100WBC (0.0-0.2); Platelet Count 236 X10*3/uL (160-400); Red Blood Count 3.04 X10*6/uL (4.20-5.50); White Blood Count 17.8 X10*3/uL (4.8-10.8)
[2025-02-25 16:27] LABS: Alanine Aminotransferase 18 U/L (0-31); Albumin Level 3.4 g/dL (3.5-5.0); Alkaline Phosphatase 45 U/L (39-117); Anion Gap 24 (12-20); Aspartate Amino Transferase 37 U/L (5-31); Blood Urea Nitrogen 64 mg/dL (9-16); Calcium 8.9 mg/dL (8.4-10.2); Carbon Dioxide 15 mmol/L (22-29); Chloride 103 mmol/L (96-108); Creatinine Clr Calc Pharmacy 2.9; Estimated Glomerular Filt Rate 2; Magnesium 2.0 mg/dL (1.6-2.6); Potassium 3.8 mmol/L (3.3-5.1); Sodium 138 mmol/L (135-145); Total Protein 6.2 g/dL (6.5-8.0)
--- NOTE | 2025-02-25 17:32 | P.PNNP_ITS ---
Subjective Subjective Date of Service: 02/25/25 Physical Exam 2 Vital Signs: Vital Signs: Last Vital Signs Temp 98.6 F 02/25/25 17:26 Pulse 98 02/25/25 16:48 Resp 19 02/25/25 16:20 BP 100/41 L 02/25/25 16:48 Pulse Ox 97 02/25/25 16:20 O2 Del Method Room Air 02/25/25 16:20 BMI result Body Mass Index 36.1 Objective Data Labs 02/25/25 15:52 02/25/25 15:52 Labs: Laboratory Results - last 24 hr 02/25/25 15:52 WBC 17.8 H RBC 3.04 L Hgb 10.1 L Hct 30.5 L MCV 100.3 H MCH 33.2 H MCHC 33.1 RDW 14.3 Plt Count 236 D MPV 9.6 Immature Gran % (Auto) 3.3 H Neut % (Auto) 78.5 H Lymph % (Auto) 8.2 L [place] % (Auto) 8.2 Eos % (Auto) 1.5 Baso % (Auto) 0.3 Lymph # (Auto) 1.5 [place] # (Auto) 1.5 H Eos # (Auto) 0.3 Baso # (Auto) 0.1 Abs Immat Gran (auto) 0.59 H Absolute Neuts (auto) 13.9 H Absolute Nucleated RBC 0.000 Nucleated RBC % (auto) 0.0 Sodium 138 Potassium 3.8 Chloride 103 Carbon Dioxide 15 L Anion Gap 24 H BUN 64 H Creatinine 16.97 H* Estim Creat Clear Calc 2.9 Estimated GFR 2 Random Glucose 157 H Lactic Acid 1.1 Calcium 8.9 Magnesium 2.0 Total Bilirubin 0.2 Direct Bilirubin 0.2 AST 37 H ALT 18 Alkaline Phosphatase 45 C-Reactive Protein 4.41 H Total Protein 6.2 L Albumin 3.4 L Procedures Date of Service Date of Service: 02/25/25 Assessment & Plan Assessment and plan (1) End stage chronic kidney disease: Start date: 02/25/25 Status: Acute Plan Patient presented with hypotension and diarrhoea No abdominal pain Labs reviewed: potassium normal [facility] labs review [place] December, creatinine 3-4, February creatinine 8.8 ( PD patients tend to have high serum creatinine ) but serum creatinine today is 16 Elevated creatinine: volume depletion versus inadequate dialysis KTV in December was 2.1. Target is 1.7. ( 1.2 from PD and 0.8 from residual kidney function) PD prescription : 3 exchanges total volume 6000ml and fill volume 2000. PLan: For tonight, I would give IV fluids and stabilize her BP Hold PD tonight until BP is stable To increase her PD prescription tomorrow Time Spent With Patient Time: Total time managing care of this patient today ____ minutes.
--- NOTE | 2025-02-25 19:41 | PC.NURSE ---
pt unable to urinate on bedside commode. Bladder scan shows 10ml in bladder. made aware and will differ ua at this time to [facility]. Pt being transferred to [facility]. [address] room 557, . SARS swab collected and sent to lab.
--- NOTE | 2025-02-25 19:48 | PC.NURSE ---
T/w ttempted to call report to [facility]. [phone] phone rang until call disconnected. T/w then called main hospital line nd granulizing machine operator transferred the call to nurses station. still no answer. Will continue to attempt to call report.
--- NOTE | 2025-02-25 20:16 | PC.NURSE ---
T/w called and spoke to charge histotechnologist Alta at [address] stating RN would call this RN back to get report. Informed her that the ambulance would be arriving in approximately 15 minutes for pt to be transferred.
[2025-02-25 20:19] LABS: Resp Syncy Virus RNA Qual PCR NEGATIVE (Negative); SARS COV2 PCR INHOUSE NEGATIVE (Negative)
== END 2025-02-25 20:37 | disposition short-term general hospital (02) ==
PROVIDERS: Nurse Practitioner Family; Emergency Provider Emergency Medicine; PCP Nurse Practitioner Family
DX: E86.0 Dehydration (principal); R00.0 Tachycardia, unspecified; R74.8 Abnormal levels of other serum enzymes; N18.9 Chronic kidney disease, unspecified; I95.9 Hypotension, unspecified; R30.0 Dysuria; R94.31 Abnormal electrocardiogram [ECG] [EKG]; R11.0 Nausea; R19.7 Diarrhea, unspecified; R50.9 Fever, unspecified; Z03.818 Encounter for observation for suspected exposure to other biological agents ruled out; Z87.440 Personal history of urinary (tract) infections; Z79.899 Other long term (current) drug therapy; Z87.891 Personal history of nicotine dependence
CPT/HCPCS: 36415; 71045; 74176; 80048; 80076; 83605; 83735; 85025; 86140; 87040; 87637; 93005; 96360; 96361; 99285; 99291

== ENCOUNTER → 2025-02-25 14:46 | Outpatient (BNV) | payer MEDICARE, MEDICAID, SELFPAY | PROVIDERS: Emergency Provider Emergency Medicine; PCP Nurse Practitioner Family; Visit Provider Internal Medicine Cardiovascular Disease | DX: R00.0 Tachycardia, unspecified (principal) | CPT/HCPCS: 93010 ==

== ENCOUNTER → 2025-02-25 17:47 | Outpatient (BNV) | payer MEDICARE, MEDICAID, SELFPAY | PROVIDERS: Emergency Provider Emergency Medicine; PCP Nurse Practitioner Family; Visit Provider Radiology Diagnostic Radiology | DX: R18.8 Other ascites (principal); R53.81 Other malaise | CPT/HCPCS: 71045; 74176 ==